=== PATIENT | female | born 1965 | race Hispanic/Latino ===

== ENCOUNTER 2019-02-08 13:04 | Outpatient (CLI) | payer OTHER ==
--- NOTE | 2019-02-14 11:16 | MMO ---
Bilateral MAMMO Bilat Screen [facility]. CLINICAL HISTORY: Patient is 53 years old and is seen for screening. The patient has no family history of breast cancer. The patient has no personal history of cancer. VIEWS: The views performed were: bilateral craniocaudal with tomosynthesis and bilateral mediolateral oblique with tomosynthesis. FILMS COMPARED: The present examination has been compared to prior imaging studies performed at [facility] on 04/23/2015 and 05/06/2016, and at [facility] on 10/09/2013. MAMMOGRAM FINDINGS: There are scattered fibroglandular densities. Finding 1: There are stable benign appearing calcifications seen in both breasts. Finding 2: There are multiple round masses with circumscribed margins seen in both breasts. There are no suspicious masses, suspicious calcifications, or new areas of architectural distortion. IMPRESSION: THERE IS NO MAMMOGRAPHIC EVIDENCE OF MALIGNANCY. A ROUTINE FOLLOW-UP MAMMOGRAM IN 1 YEAR IS RECOMMENDED. THE RESULTS OF THIS EXAM WERE SENT TO THE PATIENT. ACR BI-RADS Category 2 - Benign finding MAMMOGRAPHY NOTE: 1. A negative mammogram report should not delay a biopsy if a dominant of clinically suspicious mass is present. 2. Approximately 10% to 15% of breast cancers are not detected by mammography. 3. Adenosis and dense breasts may obscure an underlying neoplasm.
== END 2019-02-08 13:05 | disposition home or self-care (01) ==
LOC: BICMAMMO 13:04
PROVIDERS: ATTEND Internal Medicine
DX: Z12.31 Encounter for screening mammogram for malignant neoplasm of breast (principal)
CPT/HCPCS: 77063; 77067

== ENCOUNTER 2020-06-19 12:48 | Outpatient (CLI) | payer OTHER ==
--- NOTE | 2020-06-19 14:15 | MMO ---
Bilateral MAMMO Bilat Diag [facility]. CLINICAL HISTORY: Patient is 54 years old and is seen for diagnostic exam and palpable abnormality in the left breast. The patient has no family history of breast cancer. The patient has no personal history of cancer. VIEWS: The views performed were: bilateral craniocaudal with tomosynthesis; bilateral mediolateral oblique with tomosynthesis; and bilateral mediolateral with tomosynthesis. FILMS COMPARED: The present examination has been compared to prior imaging studies performed at [facility] on 05/06/2016, and at [facility] on 02/08/2019 and 06/19/2020. This study has been interpreted with the assistance of computer-aided detection. MAMMOGRAM FINDINGS: The breasts are heterogeneously dense, which could obscure a lesion on mammography. Finding 1: There are stable benign appearing calcifications seen in both breasts. Finding 2: There is an equal density, round mass measuring 17 millimeters with circumscribed margins seen in the right breast. Ultrasound shows a cyst. Finding 3: There are multiple round masses of varying size seen in the upper region of the left breast. Largest mass measures 23 mm. Ultrasound shows multiple cysts. There are no suspicious masses, suspicious calcifications, or new areas of architectural distortion. IMPRESSION: THERE IS NO MAMMOGRAPHIC EVIDENCE OF MALIGNANCY. A ROUTINE FOLLOW-UP MAMMOGRAM IN 1 YEAR IS RECOMMENDED. THE RESULTS OF THIS EXAM WERE SENT TO THE PATIENT. ACR BI-RADS Category 2 - Benign finding MAMMOGRAPHY NOTE: 1. A negative mammogram report should not delay a biopsy if a dominant of clinically suspicious mass is present. 2. Approximately 10% to 15% of breast cancers are not detected by mammography. 3. Adenosis and dense breasts may obscure an underlying neoplasm. Reported by: CARLOS REINA MD Electonically Signed: [id number]
--- NOTE | 2020-06-19 16:44 | ULT ---
LIMITED ULTRASOUND RIGHT BREAST: 06/19/20 HISTORY: Mass right breast on ultrasound exam. FINDINGS: There is a circumscribed anechoic structure seen at the 12 o'clock position right breast which demons trates sonographic characteristics most compatible with a cyst. This correlates with mammographic fin dings. IMPRESSION: 1. BIRADS 2: Benign Finding(s) Routine annual screening mammography (for women over age 40). 2. Right breast cyst. POS: OFF
--- NOTE | 2020-06-19 16:49 | ULT ---
LIMITED ULTRASOUND LEFT BREAST: 06/19/20 HISTORY: Pain outer left breast with palpable abnormalities. COMPARISON: Mammograms obtained on today's date. FINDINGS: There are circumscribed anechoic cystic structures seen within the left breast at the 1 o'clock and 2 o'clock position which demonstrate sonographic characteristics compatible with cysts. Largest cysts are seen at the 2 o'clock position left breast, each of which measures approximately 2 cm. The cysts correspond to mammographic findings. This is also in the region of patient's focal area of pain. No s olid mass is seen. Additional smaller cysts are present. IMPRESSION: 1. BIRADS 2: Benign Finding(s) Routine annual screening mammography (for women over age 40). 2. Left breast cysts. 3. Left breast cysts can be aspirated if warranted secondary to patient's pain. POS: OFF
--- NOTE | 2020-06-19 17:01 | ULT ---
EXAM: ULTRASOUND GUIDED CYST ASPIRATION OF TWO SEPARATE CYSTS LEFT BREAST 06/19/20 HISTORY: Left breast cysts with discomfort associated with palpation of the cyst. Cyst aspiration requested. TECHNIQUE: The excision including risks and complications were explained to the patient, informed consent was ob tained. The patient was placed on the sonography table in the supine position. Limited sonographic ev aluation of the left breast was performed. The largest dominant cyst in the left breast at the 2 o'clock position was localized. The area was me ticulously prepped and draped in the usual sterile fashion. Skin and subcutaneous tissues were infilt rated with buffered 1% lidocaine for local anesthesia. Using concurrent real time ultrasound guidance , a 20 gauge needle was advanced into the cyst. Approximately 3 mL of slightly yellow colored fluid w as aspirated. The cyst was able to be aspirated in its entirety. Skin and subcutaneous tissues overly ing the second dominant cyst 2 o'clock position left breast were then infiltrated with buffered 1% li docaine for local anesthesia. Utilizing concurrent real time ultrasound guidance, a 20 gauge spinal n eedle was advanced into the cyst. Approximately 2 mL of slightly yellow colored fluid was aspirated. This cyst was able to be aspirated in its entirety. Hemostasis was achieved with direct pressure. The patient tolerated the procedure well and without im mediate complication. Dry sterile dressing was placed at puncture site. IMPRESSION: Technically successful ultrasound guided aspiration of two separate cysts at the 2 o'clock position l eft breast. The cysts were able to be aspirated in their entirety. Benign appearing fluid was aspirat ed from each cyst. POS: OFF
== END 2020-06-19 12:49 | disposition home or self-care (01) ==
LOC: BICMAMMO 12:48
PROVIDERS: ATTEND Internal Medicine
DX: N63.20 Unspecified lump in the left breast, unspecified quadrant (principal); N60.02 Solitary cyst of left breast; N60.01 Solitary cyst of right breast
CPT/HCPCS: 76942; 77066; G0279

== ENCOUNTER 2022-09-03 11:07 | Outpatient (CLI) | payer OTHER | END 2022-09-03 11:08 | disposition home or self-care (01) | LOC: BICMAMMO 11:07 | PROVIDERS: ATTEND Internal Medicine | DX: Z12.31 Encounter for screening mammogram for malignant neoplasm of breast (principal) | CPT/HCPCS: 77063; 77067 ==

== ENCOUNTER 2023-05-06 09:01 | Outpatient (CLI) | payer OTHER | END 2023-05-06 09:02 | disposition home or self-care (01) | LOC: BICCT 09:01 | PROVIDERS: ATTEND Internal Medicine | DX: R10.9 Unspecified abdominal pain (principal) | CPT/HCPCS: 74176 ==

== ENCOUNTER 2025-05-07 08:27 | Outpatient (CLI) | payer OTHER | END 2025-05-07 08:28 | disposition home or self-care (01) | LOC: BICMAMMO 08:27 | PROVIDERS: ATTEND Internal Medicine | DX: Z12.31 Encounter for screening mammogram for malignant neoplasm of breast (principal) | CPT/HCPCS: 77063; 77067 ==

== ENCOUNTER 2025-05-14 08:00 | Outpatient (CLI) | payer OTHER | END 2025-05-14 08:01 | disposition home or self-care (01) | LOC: BICULT 08:00 | PROVIDERS: ATTEND Internal Medicine | DX: R74.01 Elevation of levels of liver transaminase levels (principal); K76.0 Fatty (change of) liver, not elsewhere classified | CPT/HCPCS: 76705 ==